=== PATIENT | female | born 1970 | race Caucasian/White ===

== ENCOUNTER 2020-10-31 09:57 | Emergency (ER) | payer MEDICAID ==
[~2020-10-31] VITALS: Ht 162.6 cm; Wt 56.8 kg
[2020-10-31 10:10] VITALS: BP 113/72
[2020-10-31 11:07] LABS: URINE HCG NEGATIVE (NEG)
[2020-10-31 11:11] LABS: CLARITY,URINE CLEAR (Clear); COLOR,URINE YELLOW (Yellow); GLUCOSE, URINE NEGATIVE (Neg); KETONES,URINE NEGATIVE (Neg); LEUKOCYTE ESTERASE ,URINE NEGATIVE (Neg); NITRITES, URINE NEGATIVE (Neg); OCCULT BLOOD,URINE NEGATIVE (Neg); PH,URINE 6.5 (4.8-8.0); PROTEIN,URINE NEGATIVE (Neg)
[2020-10-31 11:15] LABS: UA COLLECTION TYPE CLN CATCH MIDSTREAM
[2020-10-31] MEDS ORDERED: cyclobenzaprine 10mg tablet PO ONE (11:45)
[2020-10-31] MEDS ORDERED: ketorolac tromethamine 15mg/ml inj. IM ONE (11:45)
[2020-10-31] MEDS ORDERED: CYCL-1 PO (11:56)
== END 2020-10-31 12:44 | disposition home or self-care (01) ==
LOC: ER 09:58
DX: M54.5 Low back pain (principal); Z79.899 Other long term (current) drug therapy
CPT/HCPCS: 81003; 81025; 96372; 99283; J1885

== ENCOUNTER 2023-06-13 13:45 | Emergency (ER) | payer MEDICAID ==
[~2023-06-13] VITALS: Ht 162.6 cm; Wt 52.3 kg
[~2023-06-13 13:45] MED LIST: CYCL-1 PO
[2023-06-13 15:29] LABS: BASOPHILS # (AUTO) 0.1 X10'3 (0-0.2); BASOPHILS % (AUTO) 0.6 % (0-1); EOSINOPHILS # (AUTO) 0.4 X10'3 (0-0.9); HEMATOCRIT 36.1 % (35.0-45.0); HEMOGLOBIN 11.2 g/dl (12.0-16.0); LYMPHOCYTES # (AUTO) 1.7 X10'3 (1.1-4.8); LYMPHOCYTES % (AUTO) 12.3 % (21-51); MEAN CORPUSCULAR HEMOGLOBIN 24.5 PG (27.0-31.0); MEAN CORPUSCULAR VOLUME 79.2 FL (78-98); MEAN PLATELET VOLUME 7.1 FL (7.4-10.4); MONOCYTES # (AUTO) 1.1 X10'3 (0-0.9); MONOCYTES % (AUTO) 7.7 % (2-12); NEUTROPHILS # (AUTO) 10.4 X10'3 (1.8-7.7); NEUTROPHILS % (AUTO) 76.4 % (42-75); PLATELET COUNT 428 X10'3 (140-440); RED BLOOD COUNT 4.56 X10'6 (4.20-5.60); RED CELL DISTRIBUTION WIDTH 16.2 % (11.5-14.5); WHITE BLOOD COUNT 13.6 X10'3 (4.5-11.0)
[2023-06-13 15:39] LABS: ALANINE AMINOTRANSFERASE 22 U/L (12-78); ALBUMIN/GLOBULIN RATIO 0.7 (1.1-1.5); ALKALINE PHOSPHATASE 94 IU/L (46-116); ANION GAP 6 (8-16); ASPARTATE AMINO TRANSFERASE 21 U/L (10-37); BILIRUBIN,TOTAL 0.3 MG/DL (0.1-1.0); BLOOD UREA NITROGEN 10 MG/DL (7-18); BUN/CREATININE RATIO 16.9 (10.0-20.0); CALCIUM 9.2 MG/DL (8.5-10.1); CHLORIDE 100 MMOL/L (99-107); CREATININE 0.59 MG/DL (0.40-0.90); GLUCOSE 104 MG/DL (70-104); MAGNESIUM 1.9 MG/DL (1.5-2.4); SODIUM 136 MMOL/L (135-145); TOTAL CARBON DIOXIDE 29.8 MMOL/L (24-32); TOTAL PROTEIN 7.3 G/DL (6.4-8.2); eCRCL 92 ML/MIN; eGFR > 90 ML/MIN
[2023-06-13] MEDS ORDERED: mupirocin 2% ointment 22GM TP STA (21:25)
[2023-06-13] MEDS ORDERED: sulfamethoxazole/trimethoprim DS (800/160mg) tablet PO ONE (21:25)
[2023-06-13] MEDS ORDERED: MUPI22OI30 TOP (21:32)
[2023-06-13] MEDS ORDERED: ZINC28.47 TOP (21:32)
[2023-06-13] MEDS ORDERED: SULF1TAB45 PO (21:32)
[2023-06-13] MEDS ORDERED: HYDROcodone/acetaminophen 5mg/325mg tablet PO ONE (21:50)
[2023-06-13 22:07] VITALS: BP 124/71; PULSE 102; RESP 17; TEMP 98.3; O2SAT 98
== END 2023-06-13 22:13 | disposition home or self-care (01) ==
LOC: ER 13:45
DX: L30.9 Dermatitis, unspecified (principal); L03.90 Cellulitis, unspecified; Z79.899 Other long term (current) drug therapy
CPT/HCPCS: 36415; 71045; 80053; 83605; 83735; 84145; 85025; 87040; 93005; 99285